=== PATIENT | male | born 1970 | race Caucasian/White ===

== ENCOUNTER → 2016-11-18 | Day surgery (SDC) | payer BC ==
[2016-11-17 13:43] VITALS: Ht 188 cm; Wt 84.1 kg
[~2016-11-18] VITALS: Ht 188 cm; Wt 84.1 kg
[~2016-11-18] MED LIST: FENTANYL CITRATE INJ 50 MCG/1 ML 2 ML VIAL ONE; FLUO20CA35 PO; LIDOCAINE HCL 2% 2 ML VIAL (20MG/ML) ONE; PANT40TA PO; PROPOFOL IV EMULSION 10 MG/ML 20 ML VIAL IV ONE; SODIUM CHLORIDE 0.9% 500ML 500 ML IV ONE; TRAZ50TA35 PO
--- NOTE | 2016-11-18 09:15 | Endo History and Physical ---
History & Physical Date of Service: Nov 18, 2016. Chief Complaint: abdominal pain, hemetasis Referring Physician: Dr. Sawyer History of Present Illness 45 yo CM who presents for EGD secondary to abdominal pain and hematemesis. Past Surgical History Hx Cardiac Surgery: No Hx Internal Defibrillator: No Hx Pacemaker: No Hx Abdominal Surgery: Yes (PERFORATED COLON DURING COLONOSCOPY - COLOSTOMY THEN REVERSED) Hx of Implantable Prosthesis: No Hx Post-Op Nausea and Vomiting: No Hx Cancer Surgery: No Hx Thoracic Surgery: No Hx Orthopedic: Yes (CYST REMOVED FROM HAND, KNEE ARTHROSCOPY) Hx Urinary Tract Surgery: No Family History None Social History Smoking Status: Current Every Day Smoker Hx Substance Use: No Hx Alcohol Use: No Allergies Coded Allergies: No Known Allergies (Verified , 11/18/16) Current Medications Reported Home Medications Medications Dose Route/Sig Max Daily Dose Days Date Category Prozac (Fluoxetine HCl) 20 Mg Cap 20 Mg PO QAM 11/17/16 Reported Protonix (Pantoprazole Sodium) 40 Mg Tab 40 Mg PO BID 11/17/16 Reported Trazodone (Trazodone HCl) 50 Mg Tab 25 Mg PO HS 11/17/16 Reported Vital Signs Weight (Kilograms): 84.09 Height (Feet): 6 Height (Inches): 2 Date Time Temp Pulse Resp B/P (MAP) Pulse Ox O2 Delivery O2 Flow Rate FiO2 11/18/16 08:46 36.5 69 20 108/69 (82) 96 Room Air Physical Exam General Appearance: WD/WN, no apparent distress Respiratory/Chest: Auscultation: breath sounds normal Cardiovascular: Heart Auscultation: RRR Abdomen: Bowel Sounds: normal Inspection & Palpation: soft, non-distended, no tenderness, guarding & rebound Assessment and Plan Assessment: 45 yo CM who presents for EGD secondary to abdominal pain and hematemesis. Plan: Proceed with EGD.
--- NOTE | 2016-11-18 09:33 | Discharge Instructions ---
Endoscopy Patient Instructions Date / Procedure(s) Performed Nov 18, 2016. EGD Allergy Information Coded Allergies: No Known Allergies (Verified , 11/18/16) Discharge Date / Findings Nov 18, 2016. Gastritis s/p biopsies Esophageal brushings Medication Instructions OK to resume all medications today as prescribed Medications Dose Route/Sig Max Daily Dose Days Date Category Prozac (Fluoxetine HCl) 20 Mg Cap 20 Mg PO QAM 11/17/16 Reported Protonix (Pantoprazole Sodium) 40 Mg Tab 40 Mg PO BID 11/17/16 Reported Trazodone (Trazodone HCl) 50 Mg Tab 25 Mg PO HS 11/17/16 Reported Provider Instructions Activity Restrictions - No exercising or heavy lifting for 24 hours. - Do not drink alcohol the day of the procedure. - Do not drive a car or operate machinery until the day after the procedure. - Do not make any important decisions or sign important papers in 24 hours after the procedure. Following Day: - Return to full activity which may include returning to work/school. Diet Start your diet with liquids and light foods (jello, soup, juice, toast). Then eat your usual diet if not nauseated. Treatment For Common After Affects For mild abdominal pain, bloating, or excessive gas: - Rest - Eat lightly - Lie on right side Follow-Up Information Follow-up with as scheduled Anesthesia Information What You Should Know You have had a procedure that required some medicine to reduce anxiety and discomfort. This treatment is called moderate sedation. After receiving the treatment, you may be sleepy, but you will be able to breathe on your own. The effects of the treatment may last for several hours. Follow these instructions along with Activity/Diet recommendations noted above: * Do NOT do anything where dizziness or clumsiness would be dangerous. * Rest quietly at home today, then you can be up and about tomorrow. * Have a responsible person stay with you the rest of today. * You may have had an I.V. today. If so, you may take the dressing off later today. Recommendations Call your doctor if: * Trouble breathing * Continuous vomiting for more than 24 hours * Temperature above 101 degrees * Severe abdominal pain or bloating * Pain not relieved by pain medicine ordered * There is increased drainage or redness from any incision * A large amount of rectal bleeding greater than 2-3 tablespoons. (If you had a polyp/s removed or have hemorrhoids, a small amount of blood - from the rectum is to be expected.) * You have any unanswered questions or concerns. IN THE EVENT OF A SERIOUS EMERGENCY, GO TO THE NEAREST EMERGENCY ROOM Your discharge instructions were prepared by provider Manpreet Barker. Patient Instructions Signature Page Christiano Myers Patient (or Guardian) Signature/Date: I have read and understand the instructions given to me by my caregivers. Caregiver/RN/Doctor Signature/Date: The above-named patient and/or guardian has received patient instructions on this date. + Original Patient Signature Page (only) stays with chart. Please make copy for patient.
--- NOTE | 2016-11-18 09:47 | GI REPORT ---
Procedure Date: 11/18/2016 9:05 AM Procedure: Upper GI endoscopy Indications: Hematemesis Medicines: Monitored Anesthesia Care Complications: No immediate complications. Estimated Blood Loss: Estimated blood loss: none. Procedure: Pre-Anesthesia Assessment: - Prior to the procedure, a History and Physical was performed, and patient medications and allergies were reviewed. The patient's tolerance of previous anesthesia was also reviewed. The risks and benefits of the procedure and the sedation options and risks were discussed with the patient. All questions were answered, and informed consent was obtained. Prior Anticoagulants: The patient has taken no previous anticoagulant or antiplatelet agents. ASA Grade Assessment: III - A patient with severe systemic disease. After reviewing the risks and benefits, the patient was deemed in satisfactory condition to undergo the procedure. After obtaining informed consent, the endoscope was passed under direct vision. Throughout the procedure, the patient's blood pressure, pulse, and oxygen saturations were monitored continuously. The Scope was introduced through the mouth, and advanced to the second part of duodenum. The upper GI endoscopy was accomplished without difficulty. The patient tolerated the procedure well. Findings: Localized candidiasis was found in the upper third of the esophagus. Cells for cytology were obtained by brushing. Localized mild inflammation characterized by erythema was found in the gastric antrum. Biopsies were taken with a cold forceps for histology. The examined duodenum was normal. Impression: - Monilial esophagitis. Cells for cytology obtained. - Gastritis. Biopsied. - Normal examined duodenum. Recommendation: - Resume previous diet. - Continue present medications. - Await pathology results. - Return to primary care physician as previously scheduled. Manpreet Barker, DO 11/18/2016 9:46:35 AM This report has been signed electronically. Note Initiated On: 11/18/2016 9:05 AM I attest to the content of the Intraoperative Record and orders documented therein, exceptions below
[2016-11-18 10:05] VITALS: BP 117/77; PULSE 72; O2SAT 97
--- NOTE | 2016-11-18 10:23 | Anesthesiology Progress Note ---
Anesthesia Post Op Note Date & Time Nov 18, 2016 at 10:23 Vital Signs Pain Intensity: 0 Vital Signs Past 12 Hours Date Time Temp Pulse Resp B/P (MAP) Pulse Ox O2 Delivery O2 Flow Rate FiO2 11/18/16 10:05 72 20 117/77 (90) 97 Room Air 11/18/16 09:50 75 20 119/72 (88) 97 Room Air 11/18/16 09:35 76 20 92/60 (71) 99 Room Air 11/18/16 08:46 36.5 69 20 108/69 (82) 96 Room Air Notes Mental Status: alert / awake / arousable, participated in evaluation Pt Amnestic to Procedure: Yes Nausea / Vomiting: adequately controlled Pain: adequately controlled Airway Patency, RR, SpO2: stable & adequate BP & HR: stable & adequate Hydration State: stable & adequate Anesthetic Complications: no major complications apparent
== END | disposition home or self-care (01) ==
LOC: C.GI 08:29
PROVIDERS: ATTEND Internal Medicine
DX: K92.0 Hematemesis (principal); B37.81 Candidal esophagitis; F17.210 Nicotine dependence, cigarettes, uncomplicated; Z79.899 Other long term (current) drug therapy